=== PATIENT | male | born 1960 | race Caucasian/White ===

== ENCOUNTER → 2021-01-02 09:11 | Outpatient (CLI) | payer OTHER, MEDICAID, SELFPAY ==
--- NOTE | 2021-01-02 09:19 | DI.ECHO.S_ITS ---
[place] [facility]---------+ [facility] +---------+ : : [address] : [address] : : : : [id number] : : : : Phone: [phone] +---------+ Echocardiogram Report + + :Name: ARCADIO TRACY Study Date: 01/02/2021 Height: 77 in : :[facility] ReadingLocation: Weight: 210 lb : : Gender: Male BSA: 2.3 m2 : :: 1960 Age: 60 yrs BP: 166/98 mmHg: :Reason For Study: CHEST PAIN : :Ordering Physician: : :SEDRICK SANZ Performed By: Lin Levine : :Referring: SEDRICK SANZ : + + Interpretation Summary The left ventricle is normal in size and wall thickness. The ejection fraction is estimated to be 60-65%. The right ventricle is normal in size and function. There is moderate mitral regurgitation. There is mild tricuspid regurgitation. The right ventricular systolic pressure is estimated to be at least 28 mmHg based on an estimated right atrial pressure of 3 mm Hg. Mild atherosclerotic plaque(s) in the aortic arch. BP: 166/98 mmHg Procedure: A two-dimensional transthoracic echocardiogram with color flow and Doppler was performed. The study quality was technically adequate. There is no prior echocardiogram noted for this patient. The patient was in sinus rhythm with heart rates between 58-67 bpm during the exam. Left Ventricle: The left ventricle is normal in size and wall thickness. There is no thrombus. The ejection fraction is estimated to be 60-65%. There are no focal wall motion abnormalities. Diastolic parameters suggest a relaxation abnormality of the left ventricle, consistent with probable normal filling pressures. Right Ventricle: The right ventricle is normal in size and function. Atria: The left atrial size is normal. Right atrial size is normal. There is no Doppler evidence for an interatrial shunt. Mitral Valve: The mitral valve leaflets appear mildly thickened, but open well. There is moderate mitral regurgitation. Aortic Valve: The aortic valve is trileaflet. The aortic valve opens well. There is no aortic valve stenosis. No aortic regurgitation is present. Tricuspid Valve: The tricuspid valve is normal. There is mild tricuspid regurgitation. The right ventricular systolic pressure is estimated to be at least 28 mmHg based on an estimated right atrial pressure of 3 mm Hg. Pulmonic Valve: The pulmonic valve leaflets are thin and pliable; valve motion is normal. There is trace pulmonic regurgitation. Great Vessels: The aortic root is normal size. The dimensions of the ascending aorta are normal. Mild atherosclerotic plaque(s) in the aortic arch. The IVC is of normal diameter and collapses greater than 50% with a sniff. This suggests a low right atrial pressure of 3 mm Hg. Pericardium/ Pleura There is no pericardial effusion. There is no pleural effusion. MMode/2D Measurements & Calculations LVIDd: 5.2 cm LVOT diam: 2.2 cm LVIDs: 3.1 cm Ao root diam: 3.3 cm FS: 40.3 % asc Aorta Diam: 3.0 cm IVSd: 0.76 cm LVPWd: 0.82 cm LV bashir. diameter/BSA (cm/m^2): 2.3 LV sys. diameter/BSA (cm/m^2): 1.4 LA A2 area: 19.6 cm2 RA long axis: 4.6 cm LA A4 area: 16.7 cm2 RA area: 11.3 cm2 LA length (vol): 4.6 cm RA vol: 23.4 ml LA vol: 60.1 ml RA : 10.2 ml/m2 LA vol index: 26.3 ml/m2 IVC diam: 1.6 cm RVD1 (basal): 3.0 cm TAPSE: 1.9 cm Doppler Measurements & Calculations Ao V2 max: 125.6 cm/sec LVOT Max Osiel: 104.6 cm/sec Ao V2 mean: 83.9 cm/sec LV V1 max P.4 mmHg Ao max P.3 mmHg LV V1 VTI: 23.7 cm Ao mean P.3 mmHg JACQUI(I,D): 3.4 cm2 Ao V2 VTI: 26.2 cm JACQUI(V,D): 3.1 cm2 sev ratio: 0.90 JACQUI indexed to BSA (cm^2/m^2): 1.5 MV E max osiel: 82.7 cm/sec TR max osiel: 248.6 cm/sec MV A max osiel: 98.3 cm/sec TR max P.7 mmHg MV E/A: 0.84 PA V2 max: 114.4 cm/sec Med Peak E' Osiel: 6.1 cm/sec PA V2 mean: 83.8 cm/sec E/E' med: 13.6 PA mean P.2 mmHg Lat Peak E' Osiel: 9.0 cm/sec PA pr(Accel): 32.8 mmHg E/E' lat: 9.2 E/e' average: 11.4 MV dec time: 0.28 sec SV(LVOT): 88.5 ml Reading Physician:04:33 PM
[2021-01-02 09:56] LABS: COVID19 -Nasal RAPID Negative (Negative)
--- NOTE | 2021-01-04 19:43 | DI.NM.S_ITS ---
DATE OF SERVICE: 01/02/2021 PROCEDURE: Exercise perfusion study. INDICATION: Exertional chest discomfort, shortness of breath, hypertension, hyperlipidemia, CKD. RADIOPHARMACEUTICAL: 25.1 millicurie technetium-99m Myoview IV was injected at stress and 11.8 millicurie technetium-99m Myoview IV was injected at rest. CARDIAC STRESS: The patient underwent exercise perfusion study under the supervision of attending staff. He walked on Guerrero protocol for 5 minutes and 11 seconds, achieved 7 METs of workload, functional aerobic impairment positive 35 percent. The patient achieved 101 percent of target heart rate with maximum heart rate of 161 beats per minute. Baseline blood pressure 134/87 mmHg. Peak blood pressure 260/100 mmHg. The patient felt dyspnea and fatigue and moderate chest discomfort which got resolved quickly in recovery. Baseline rhythm was sinus. During stress, no convincing ischemic changes seen. Occasional PVCs were seen. No ventricular tachycardia or AFib seen. RAW DATA: There is increased subdiaphragmatic activity. Patient's weight is 210 pounds. GATED STUDY: Stress LV ejection fraction 73 percent without any obvious wall motion abnormalities. Resting end-diastolic volume 96 mL. TID ratio 0.70, which is within normal limits. Lung/heart ratio 0.27, which is within normal limits. MYOCARDIAL PERFUSION SCAN: Stress supine, resting supine and stress prone images were compared to each other. Resting supine images revealed moderate size, mildly decreased perfusion of inferior wall extending into the inferoapex. The stress supine images revealed small size, mildly decreased perfusion of base to mid inferior wall. During stress prone images, there was complete resolution of inferior wall and inferoapical defect. Stress supine and stress prone images revealed normal myocardial perfusion. CONCLUSION: I will call this study a normal myocardial perfusion study with evidence of diaphragmatic tissue attenuation artifact, which got resolved during prone images. Poor exercise tolerance. The patient was able to walk for 5 minutes and 11 seconds. [place] dyspnea, fatigue and chest discomfort, which got resolved in recovery. However, no ischemic changes. The patient has hypertensive blood pressure response. Baseline blood pressure 134/87 and maximum blood pressure 260/100 mmHg. No significant arrhythmias seen. As far as perfusion scan is concerned, this is a low-risk myocardial perfusion scan. Florencio Parry - MARIPOSA/mike/rai doc#: [id number]/job#: [id number] dd: 01/04/2021 17:05:00 dt: 01/04/2021 19:11:00 DICTATING MD/COPIES TO: Tereza Hsu MD COPIES MNE: CLAIRE;
== END ==
PROVIDERS: PCP Registered Nurse; Referring Provider Internal Medicine Cardiovascular Disease; Visit Provider Internal Medicine Cardiovascular Disease
DX: I08.1 Rheumatic disorders of both mitral and tricuspid valves (principal); I70.0 Atherosclerosis of aorta; R07.9 Chest pain, unspecified; R06.02 Shortness of breath; Z20.822 Contact with and (suspected) exposure to COVID-19
CPT/HCPCS: 78452; 87635; 93017; 93306; A9502

== ENCOUNTER → 2022-12-12 15:33 | Outpatient (CLI) | payer OTHER, MEDICAID, SELFPAY ==
--- NOTE | 2022-12-12 | DI.ECHO.S_ITS ---
[place] +---------+ [facility] +---------+ : : [address] : [address] [address] : : : : [id number] : : : : Phone: [phone] +---------+ Echocardiogram Report + + :Name: ARCADIO TRACY Study Date: 12/12/2022 Height: 78 in : :[facility] ReadingLocation: Weight: 210 lb : : Gender: Male BSA: 2.3 m2 : :: 1960 Age: 62 yrs BP: 155/81 mmHg: :Reason For Study: Mitral Valve Insufficiency : :Ordering Physician: Edmund, : :Salvador Performed By: Ernestine Norris : :Referring: SALVADOR ORDOÑEZ W : + + Interpretation Summary The ejection fraction is estimated to be 55-60%. There are no obvious focal wall motion abnormalities noted but poor endocardial definition reduces the sensitivity for the detection of such. There is no significant valvular heart disease. Procedure: A two-dimensional transthoracic echocardiogram with color flow and Doppler was performed. The study quality was technically adequate. Comparison is made with the echocardiogram of 01/02/2021. The patient was in normal sinus rhythm during the exam. Left Ventricle: The left ventricle is normal in size. The ejection fraction is estimated to be 55-60%. There are no obvious focal wall motion abnormalities noted but poor endocardial definition reduces the sensitivity for the detection of such. Diastolic parameters suggest a relaxation abnormality of the left ventricle, consistent with probable normal filling pressures. Right Ventricle: The right ventricle is normal size. The right ventricular systolic function is normal. Atria: The left atrial size is normal. Right atrial size is normal. There is no Doppler evidence for an interatrial shunt. Mitral Valve: The mitral valve leaflets appear borderline thickened, but open well. There is prolapse of the anterior mitral valve leaflet. There is no mitral valve stenosis. There is trace mitral regurgitation. Aortic Valve: The aortic valve is trileaflet. There is no aortic valve stenosis. No aortic regurgitation is present. Tricuspid Valve: The tricuspid valve leaflets are thin and pliable. There is no tricuspid stenosis. There is trace tricuspid regurgitation. Pulmonic Valve: The pulmonic valve leaflets are thin and pliable; valve motion is normal. There is no pulmonic valvular stenosis. There is trace pulmonic regurgitation. Great Vessels: The aortic root is normal size. The ascending aorta is normal in size. The pulmonary artery is normal size. The IVC is of normal diameter and collapses greater than 50% with a sniff. This suggests a low right atrial pressure of 3 mm Hg. Pericardium/ Pleura There is no pericardial effusion. There is no pleural effusion. MMode/2D Measurements & Calculations LVIDd: 3.9 cm LVOT diam: 1.8 cm LVIDs: 2.3 cm Ao root diam: 3.2 cm FS: 41.0 % asc Aorta Diam: 2.9 cm EPSS: 0.90 cm IVSd: 1.4 cm LVPWd: 1.3 cm LV bashir. diameter/BSA (cm/m^2): 1.7 LV sys. diameter/BSA (cm/m^2): 1.00 LA A2 area: 15.9 cm2 RA long axis: 4.2 cm LA A4 area: 15.1 cm2 RA area: 9.4 cm2 LA length (vol): 5.1 cm RA vol: 17.8 ml LA vol: 40.0 ml RA : 7.7 ml/m2 LA vol index: 17.3 ml/m2 RVD1 (basal): 3.3 cm LVLs ap4: 5.9 cm LVLd ap2: 7.1 cm TAPSE_phl: 2.1 cm LVLs ap2: 6.3 cm Doppler Measurements & Calculations Ao V2 max: 119.0 cm/sec LVOT Max Osiel: 106.0 cm/sec Ao V2 mean: 81.2 cm/sec LV V1 max P.5 mmHg Ao max P.0 mmHg LV V1 VTI: 22.8 cm Ao mean P.0 mmHg JACQUI(I,D): 2.3 cm2 Ao V2 VTI: 25.0 cm JACQUI(V,D): 2.3 cm2 sev ratio: 0.91 JACQUI indexed to BSA (cm^2/m^2): 1.0 MV E max osiel: 73.3 cm/sec TR max osiel: 209.3 cm/sec MV A max osiel: 91.7 cm/sec TR max P.5 mmHg MV E/A: 0.80 PA V2 max: 97.3 cm/sec Med Peak E' Osiel: 8.2 cm/sec PA V2 mean: 69.6 cm/sec E/E' med: 8.9 PA mean P.0 mmHg Lat Peak E' Osiel: 10.0 cm/sec PA pr(Accel): 18.2 mmHg E/E' lat: 7.4 E/e' average: 8.1 MV dec time: 0.24 sec SV(LVOT): 58.0 ml AV VR_phl: 0.89 JACQUI(VTI)/BSA_phl: 1.0 MV P1/2t-pr_phl: 70.0 msec Reading Physician:03:30 PM
== END ==
PROVIDERS: PCP Registered Nurse; Referring Provider Nurse Practitioner; Visit Provider Nurse Practitioner
DX: I34.0 Nonrheumatic mitral (valve) insufficiency (principal)
CPT/HCPCS: 93306